=== PATIENT | male | born 1975 | race Two or more races ===

== ENCOUNTER 2017-05-03 08:17 | Emergency (ER) | payer SELFPAY ==
--- NOTE | 2017-05-03 08:57 | EDM.PDOC ---
ED HPI GENERAL MEDICAL PROBLEM - General Chief Complaint: General Stated Complaint: BACK PAIN Time Seen by Provider: 05/03/17 08:46 - History of Present Illness INITIAL COMMENTS - FREE TEXT/NARRATIVE: HISTORY AND PHYSICAL: History of present illness: Patient 41-year-old male presents with a concern of hemorrhoid patient states she's had discomfort and been using Preparation H with no significant improvement he gets similar episodes prior Review of systems: As per history of present illness and below otherwise all systems reviewed and negative. Past medical history: As per history of present illness and as reviewed below otherwise noncontributory. Surgical history: As per history of present illness and as reviewed below otherwise noncontributory. Social history: No reported history of drug or alcohol abuse. Family history: As per history of present illness and as reviewed below otherwise noncontributory. Physical exam: HEENT: Atraumatic, normocephalic, pupils reactive, negative for conjunctival pallor or scleral icterus, mucous membranes moist, throat clear, neck supple, nontender, trachea midline. Lungs: Clear to auscultation, breath sounds equal bilaterally, chest nontender. Heart: S1S2, regular, negative for clicks, rubs, or JVD. Abdomen: Soft, nondistended, nontender. Negative for masses or hepatosplenomegaly. Negative for costovertebral tenderness. Pelvis: Stable nontender. Genitourinary: Deferred. Rectal: Patient has an external hemorrhoid noted with tenderness to palpation no active bleeding Extremities: Atraumatic, negative for cords or calf pain. Neurovascular unremarkable. Neuro: Awake, alert, oriented. Cranial nerves II through XII unremarkable. Cerebellum unremarkable. Motor and sensory unremarkable throughout. Exam nonfocal. Diagnostics: None Therapeutics: None Impression: #1 hemorrhoid #2 history of diabetes Definitive disposition and diagnosis as appropriate pending reevaluation and review of above. Rectal Pain Score (Numeric/FACES): 10 - Related Data Allergies Allergy/AdvReac Type Severity Reaction Status Date / Time No Known Allergies Allergy Verified 05/03/17 08:38 Home Meds: Home Meds metFORMIN [Glucophage XR] 500 mg PO BID 05/03/17 [History] Past Medical History HEENT History: Reports: None Cardiovascular History: Reports: None Respiratory History: Reports: None Gastrointestinal History: Reports: Hemorrhoids Genitourinary History: Reports: None Musculoskeletal History: Reports: None Neurological History: Reports: None Psychiatric History: Reports: None Endocrine/Metabolic History: Reports: Diabetes, Type II Hematologic History: Reports: None Immunologic History: Reports: None Oncologic (Cancer) History: Reports: None Dermatologic History: Reports: None - Infectious Disease History Infectious Disease History: Reports: None - Past Surgical History Head Surgeries/Procedures: Reports: None Male Surgical History: Reports: None Social & Family History - Tobacco Use Smoking Status *Q: Never Smoker Second Hand Smoke Exposure: No - Caffeine Use Caffeine Use: Reports: None - Recreational Drug Use Recreational Drug Use: No ED ROS GENERAL - Review of Systems Review Of Systems: ROS reveals no pertinent complaints other than HPI. ED EXAM, GENERAL - Physical Exam Exam: See Below (See dictation) Course - Vital Signs Last Recorded V/S: Last Vital Signs Temp 36.6 C 05/03/17 08:33 Pulse 88 05/03/17 08:33 Resp 18 05/03/17 08:33 BP 142/82 H 05/03/17 08:33 Pulse Ox 98 05/03/17 08:33 Departure - Departure Time of Disposition: 08:56 Disposition: Home, Self-Care 01 Condition: Good Clinical Impression: Hemorrhoid, History of diabetes mellitus - Discharge Information Additional Instructions: The following information is given to patients seen in the emergency department who are being discharged to home. This information is to outline your options for follow-up care. We provide all patients seen in our emergency department with a follow-up referral. The need for follow-up, as well as the timing and circumstances, are variable depending upon the specifics of your emergency department visit. If you don't have a primary care physician on staff, we will provide you with a referral. We always advise you to contact your personal physician following an emergency department visit to inform them of the circumstance of the visit and for follow-up with them and/or the need for any referrals to a consulting specialist. The emergency department will also refer you to a specialist when appropriate. This referral assures that you have the opportunity for followup care with a specialist. All of these measure are taken in an effort to provide you with optimal care, which includes your followup. Under all circumstances we always encourage you to contact your private physician who remains a resource for coordinating your care. When calling for followup care, please make the office aware that this follow-up is from your recent emergency room visit. If for any reason you are refused follow-up, please contact the [facility] emergency department at and asked to speak to the emergency department charge nurse. [facility] Specialty Care - General Surgery Professional [address], [address] [place] [address] Anusol suppository Anusol cream as directed sitz baths as discussed all schedule appointment general surgery clinic above return as needed as discussed follow with primary medical doctor 1-2 days]
== END 2017-05-03 09:08 | disposition home or self-care (01) ==
LOC: MW.ED 08:17
DX: K64.4 Residual hemorrhoidal skin tags (principal); E11.9 Type 2 diabetes mellitus without complications
CPT/HCPCS: 99282; 99283